=== PATIENT | female | born 1990 | race Caucasian/White ===

== ENCOUNTER 2021-03-07 02:27 | Emergency (ER) | payer OTHER ==
[~2021-03-07 02:27] MED LIST: AMOXICILLIN500 MG PO; BIAXIN500 MG PO; COLACE100 MG PO; NEXIUM40 MG PO; NORCO 5-325 TA1 EACH PO; NORCO 7.5-3251 EACH PO; TRAMADOL HCL50 MG PO
[2021-03-07 04:48] LABS: BASOPHIL 0.8 % (0-2); EOSINOPHIL 3.1 % (0-5); HCT 40.1 % (37.0-47.0); HGB 12.9 g/dl (12.5-16.0); LYMPHOCYTE 37.9 % (15-48); MCH 28.9 pg (25.0-31.0); MCHC 32.2 g/dL (32.0-36.0); MCV 89.7 fL (78.0-100.0); MONOCYTE 10.2 % (0-12); MPV 8.7 fL (6.0-9.5); NEUTROPHIL 47.7 % (41-80); NRBC 0; PLT 443 K/uL (150-400); RBC 4.47 M/uL (4.20-5.40); RDW 12.8 % (11.5-14.0); WBC 7.7 K/uL (4.0-10.5)
[2021-03-07 05:05] LABS: ALBUMIN 3.4 g/dL (3.4-5.0); BILIRUBIN - TOTAL 0.2 mg/dL (0.2-1.0); BUN/CREAT RATIO (CALC) 13.9 RATIO; CREATININE 0.72 mg/dL (0.51-0.95); GLOBULIN (CALCULATION) 3.5 g/dL; POTASSIUM 3.3 mmol/L (3.5-5.1); TOTAL PROTEIN 6.9 g/dL (6.4-8.2)
== END 2021-03-07 09:08 | disposition home or self-care (01) ==
LOC: FER 02:27
PROVIDERS: Emergency Medicine
DX: S06.0X0A Concussion without loss of consciousness, initial encounter (principal); S00.03XA Contusion of scalp, initial encounter; S40.012A Contusion of left shoulder, initial encounter; M54.9 Dorsalgia, unspecified; F17.200 Nicotine dependence, unspecified, uncomplicated; V86.59XA Driver of other special all-terrain or other off-road motor vehicle injured in nontraffic accident, initial encounter
CPT/HCPCS: 36415; 70450; 71260; 72125; 73030; 80053; 83690; 85025; J1170; J2270; J2405; J7030; Q9967

== ENCOUNTER 2021-06-06 19:26 | Emergency (ER) | payer OTHER | END 2021-06-06 19:55 | disposition home or self-care (01) | LOC: FER 19:26 | DX: R22.33 Localized swelling, mass and lump, upper limb, bilateral (principal); F17.200 Nicotine dependence, unspecified, uncomplicated | CPT/HCPCS: 99283 ==

== ENCOUNTER 2021-08-09 18:54 | Emergency (ER) | payer OTHER ==
[2021-08-09 20:43] LABS: BASOPHIL 0.6 % (0-2); EOSINOPHIL 0.5 % (0-5); HCT 44.3 % (37.0-47.0); HGB 14.3 g/dl (12.5-16.0); LYMPHOCYTE 9.9 % (15-48); MCH 28.7 pg (25.0-31.0); MCHC 32.3 g/dL (32.0-36.0); MCV 88.8 fL (78.0-100.0); MONOCYTE 12.9 % (0-12); MPV 8.7 fL (6.0-9.5); NEUTROPHIL 75.7 % (41-80); NRBC 0; PLT 366 K/uL (150-400); RBC 4.99 M/uL (4.20-5.40); RDW 14.2 % (11.5-14.0); WBC 17.8 K/uL (4.0-10.5)
[2021-08-09 21:07] LABS: BILIRUBIN - TOTAL 0.3 mg/dL (0.2-1.0); BUN/CREAT RATIO (CALC) 5.7 RATIO; CREATININE 0.7 mg/dL (0.51-0.95); GLOBULIN (CALCULATION) 5.1 g/dL; POTASSIUM 4.1 mmol/L (3.5-5.1); TOTAL PROTEIN 8.1 g/dL (6.4-8.2)
[2021-08-09 21:14] LABS: LACTIC ACID 1.2 mmol/L (0.4-1.9)
[2021-08-09 22:24] LABS: BILIRUBIN NEGATIVE (NEGATIVE); BLOOD 2+ Ery/uL (NEGATIVE); CLARITY CLEAR (CLEAR); COLOR YELLOW (YELLOW); GLUCOSE (U) NORMAL (NORMAL); LEUKOCYTES 3+ Leu/uL (NEGATIVE); NITRITE NEGATIVE (NEGATIVE); PROTEIN TRACE (LOW) mg/dL (NEGATIVE); SPECIFIC GRAVITY <=1.005 (1.001-1.030); UROBILINOGEN 0.2 mg/dL (0.2-1.0)
[2021-08-09 22:34] LABS: MARIJUANA (THC) POSITIVE (NEGATIVE)
[2021-08-09 22:35] LABS: AMPHETAMINES POSITIVE (NEGATIVE); BARBITURATES NEGATIVE (NEGATIVE); ECSTASY (MDMA) NEGATIVE (NEGATIVE); METHADONE NEGATIVE (NEGATIVE); OPIATES NEGATIVE (NEGATIVE); OXYCODONE NEGATIVE (NEGATIVE)
[2021-08-09 22:45] LABS: URINARY WBC 20-50
[2021-08-09 22:46] LABS: BACTERIA 1+
== END 2021-08-10 18:48 | disposition other institution (70) ==
LOC: FER 18:54
PROVIDERS: Internal Medicine
DX: A41.9 Sepsis, unspecified organism (principal); M86.9 Osteomyelitis, unspecified; M46.46 Discitis, unspecified, lumbar region; F15.10 Other stimulant abuse, uncomplicated; N39.0 Urinary tract infection, site not specified; F17.210 Nicotine dependence, cigarettes, uncomplicated
CPT/HCPCS: 36415; 71250; 72131; 80053; 80305; 81001; 83605; 84145; 84484; 85025; 87040; J1170; J2405; J2543; J3370; J7030; J7050